=== PATIENT | male | born 1950 | race Caucasian/White ===

== ENCOUNTER 2021-10-05 14:09 | Inpatient (IN) | payer OTHER, BC ==
[~2021-10-05] VITALS: Ht 188 cm; Wt 97.5 kg
[2021-10-05 14:10] VITALS: BP 105/50
[2021-10-05 14:37] LABS: ABSOLUTE BASOPHILS 0.1 thou/uL (0.0-0.2); ABSOLUTE EOSINOPHILS 0.3 thou/uL (0.0-0.7); ABSOLUTE MONOCYTES 0.7 thou/uL (0.0-1.2); ABSOLUTE NEUTROPHILS 4.1 thou/uL (1.6-8.1); BASOPHILS 1.2 %; EOSINOPHILS 4.8 %; HEMATOCRIT 40.7 % (42.0-52.0); HEMOGLOBIN 13.7 gm/dL (14.0-18.0); LYMPHOCYTES 27.6 %; MCH 32.1 pg (26.0-34.0); MCHC 33.6 g/dL (28.0-37.0); MCV 95.6 fL (80.0-100.0); MONOCYTES 9.5 %; MPV 10.1 fl. (7.2-11.1); NUCLEATED RBCS 0 /100WBC; PLATELET COUNT* 241 thou/uL (150-400); POLYS 56.9 %; RBC 4.26 mil/uL (4.50-6.00); RDW-CV 13.5 % (10.5-14.5); WBC 7.1 thou/uL (4.0-11.0)
[2021-10-05 14:44] LABS: CALCIUM 9.2 mg/dL (8.5-10.1); CREATININE 2.2 mg/dL (0.6-1.3); POTASSIUM 4.3 mmol/L (3.5-5.1)
[2021-10-05] MEDS ORDERED: PROAIR RESPICL90 MCG INH (14:44)
[2021-10-05] MEDS ORDERED: ACETAMINOPHEN325 M1 PO (14:44)
[2021-10-05] MEDS ORDERED: BUPROPION HCL150 M1 PO (14:45)
[2021-10-05] MEDS ORDERED: ASA81BEC PO (14:45)
[2021-10-05] MEDS ORDERED: LIPITOR40 MG PO (14:45)
[2021-10-05] MEDS ORDERED: CHOLESTYRAMI239.4 GM PO (14:47)
[2021-10-05] MEDS ORDERED: PRADAXA110 MG PO (14:47)
[2021-10-05] MEDS ORDERED: FLEXERIL PO (14:47)
[2021-10-05] MEDS ORDERED: FLORINEF ACETA0.1 MG PO (14:48)
[2021-10-05] MEDS ORDERED: LOMOTIL 2.5-0.01 TAB PO (14:48)
[2021-10-05 14:49] LABS: ALBUMIN 3.8 g/dL (3.4-5.0); TOTAL BILIRUBIN 0.4 mg/dL (<0.1-1.0); TOTAL PROTEIN 7.6 g/dL (6.4-8.2)
[2021-10-05] MEDS ORDERED: GRALISE600 MG PO (14:49)
[2021-10-05] MEDS ORDERED: HYDROCODON-ACE1 EAC7 PO (14:50)
[2021-10-05] MEDS ORDERED: NEURONTIN 300M300 M2 PO (14:50)
[2021-10-05] MEDS ORDERED: IBU800 MG PO (14:51)
[2021-10-05] MEDS ORDERED: INSULIN AS100 UNIT/1 SUBQ (14:53)
[2021-10-05] MEDS ORDERED: LEVEMIR FL100 UNIT/2 SUBQ (14:54)
[2021-10-05] MEDS ORDERED: TOPROL XL25 MG PO (14:55)
[2021-10-05] MEDS ORDERED: MIDODRINE HCL10 MG PO (14:55)
[2021-10-05] MEDS ORDERED: SUPER THERAVIT1 EACH PO (14:56)
[2021-10-05] MEDS ORDERED: OXYBUTYNIN 5 MG5 M2 PO (14:56)
--- NOTE | 2021-10-05 14:56 | EKG ---
[place] [address] ELECTROCARDIOGRAM REPORT Name: CRISTÓBAL CHRISTIANSON Room: [facility]#: [id number] Admission: 10/05/21 Attend Phys: Discharge: Date of : 46 Date of Service: 10/05/21 1444 Report #: [id number] THIS REPORT FOR: //name// [facility] ED Test Date: 2021-10-05 Test Time: 14:44:20 Pat Name: CRISTÓBAL CHRISTIANSON Department: Room: Gender: Chuck Wagon Driver: [facility] : 1950 Requested By: Leatha Lama Order Number: [id number] MD: Gonzalo Boswell Measurements Intervals [place] Rate: 68 P: 86 OR: 177 QRS: 67 QRSD: 105 T: 79 QT: 455 QTc: 484 Interpretive Statements Sinus rhythm Borderline prolonged QT interval No previous ECG available for comparison Electronically Signed On 10-05-2021 14:56:33 [employer] ADMINISTRATOR by Gonzalo Boswell [email or web address] <ELECTRONICALLY SIGNED> By: Gonzalo Boswell MD, [facility] 10/05/21 1456 1444 1444 Gonzalo Boswell MD, FACC /EPI
[2021-10-05] MEDS ORDERED: MYSOLINE50 MG PO (14:57)
[2021-10-05] MEDS ORDERED: PROTONIX40 M4 PO (14:57)
[2021-10-05] MEDS ORDERED: MYSOLINE250 M1 PO (14:58)
[2021-10-05] MEDS ORDERED: VITAMIN D310 MC2 PO (14:59)
[2021-10-05] MEDS ORDERED: ARICEPT10 M1 PO (14:59)
[2021-10-05 17:56] LABS: URINE CLARITY CLEAR; URINE COLOR COLORLESS; URINE PROTEIN TRACE (Negative); URINE SPECIFIC GRAVITY 1.025 (1.005-1.030)
[2021-10-05 17:57] LABS: URINE BLOOD NEGATIVE (Negative); URINE GLUCOSE-RANDOM 2+ (Negative); URINE KETONES NEGATIVE (Negative); URINE NITRITE-REFLEX NEGATIVE (Negative); URINE REDUCING SUBSTANCE NEGATIVE (Negative)
[2021-10-05 17:58] LABS: URINE LEUKOCYTES-REFLEX NEGATIVE (Negative); URINE UROBILINOGEN 0.2 E.U./dl (0.2-1.0)
[2021-10-05 18:01] VITALS: BP 126/63
[2021-10-05 18:05] LABS: URINE BILIRUBIN NEGATIVE (Negative)
[2021-10-05 18:15] VITALS: BP 140/68
[2021-10-05 20:49] VITALS: BP 144/66
[2021-10-06] VITALS (8 sets, daily range): BP systolic 89–141; BP diastolic 47–71
[2021-10-06 08:18] LABS: HEMATOCRIT 36.2 % (42.0-52.0); HEMOGLOBIN 12.3 gm/dL (14.0-18.0); MCH 32.5 pg (26.0-34.0); MCV 95.7 fL (80.0-100.0); MPV 9.4 fl. (7.2-11.1); RBC 3.78 mil/uL (4.50-6.00); RDW-CV 13.3 % (10.5-14.5); WBC 5.6 thou/uL (4.0-11.0)
[2021-10-06 08:31] LABS: ALBUMIN 3.3 g/dL (3.4-5.0); CALCIUM 8.4 mg/dL (8.5-10.1); CREATININE 1.6 mg/dL (0.6-1.3); MAGNESIUM 1.9 mg/dL (1.8-2.4); POTASSIUM 3.8 mmol/L (3.5-5.1); TOTAL BILIRUBIN 0.3 mg/dL (<0.1-1.0); TOTAL PROTEIN 6.7 g/dL (6.4-8.2)
--- NOTE | 2021-10-06 14:32 | 2DMMODE ---
[place] [address] 2 D/M-MODE ECHOCARDIOGRAM Name: CRISTÓBAL CHRISTIANSON Room: [address] Tresa Ogden#: [id number] Admission: 10/05/21 Attend Phys: Lulu العراقي, Discharge: Date of : 46 Date of Service: 10/06/21 1432 Report #: [id number] THIS REPORT FOR: cc: Berta Mireles Kathleen M. DO Blick, David R. MD [facility] ~ APPROVED REPORT Study performed: 10/06/2021 11:37:00 EXAM: Comprehensive 2D, Doppler, and color-flow Echocardiogram Patient Location: In-Patient Room #: [facility] Status: routine BSA: 2.24 HR: 72 bpm BP: 141/65 mmHg Rhythm: NSR Other Information Study Quality: Good Indications near syncope 2D Dimensions IVSd: 12.08 (7-11mm) LVOT Diam: 22.89 (18-24mm) LVDd: 49.28 mm PWd: 11.24 (7-11mm) Ascending Ao: 35.83 (22-36mm) LVDs: 28.38 (25-40mm) Aortic Root: 33.07 mm Volumes Left Atrial Volume (Systole) LA ESV Index: 21.20 mL/m2 Aortic Valve AoV Peak Jean.: 1.23 m/s AO Peak Gr.: 6.04 mmHg LVOT Max P.21 mmHg AO Mean Gr.: 3.45 mmHg LVOT Mean P.94 mmHg LVOT Max V: 0.74 m/s AO V2 VTI: 22.89 cm LVOT Mean V: 0.44 m/s MAGDALENA (VTI): 2.84 cm2 LVOT V1 VTI: 15.82 [place] [address] 2 D/M-MODE ECHOCARDIOGRAM Name: CRISTÓBAL CHRISTIANSON Room: [address] Alin#: [id number] Admission: 10/05/21 Attend Phys: Lulu العراقي, Discharge: Date of : 46 Date of Service: 10/06/21 1432 Report #: [id number] Mitral Valve E/A Ratio: 0.89 MV Decel. Time: 263.14 ms MV E Max Jean.: 0.60 m/s MV PHT: 76.31 ms MVA (PHT): 2.88 cm2 TDI E/Lateral E': 7.50 E/Medial E': 6.67 Medial E' Jean.: 0.09 m/s Lateral E' Jean.: 0.08 m/s Pulmonary Valve PV Peak Jean.: 0.95 m/s PV Peak Gr.: 3.64 mmHg Tricuspid Valve RAP Estimate: 5.00 mmHg TR Peak Gr.: 19.07 mmHg RVSP: 24.00 mmHg PA Pressure: 24.00 mmHg Left Ventricle The left ventricle is normal size. There is normal LV segmental wall motion. Mild concentric left ventricular hypertrophy. Left ventricular systolic function is normal. The left ventricular ejection fraction is within the normal range. LVEF is 55-60%. Grade I - abnormal relaxation pattern. Right Ventricle The right ventricle is normal size. The right ventricular systolic function is normal. Atria The left atrium size is normal. The right atrium size is normal. Aortic Valve Mild aortic valve sclerosis. No aortic regurgitation is present. There is no aortic valvular stenosis. Mitral Valve The mitral valve is normal in structure. Trace mitral regurgitation. No evidence of mitral valve stenosis. Tricuspid Valve The tricuspid valve is normal in structure. Mild tricuspid regurgitation. [place] [address] 2 D/M-MODE ECHOCARDIOGRAM Name: CRISTÓBAL CHRISTIANSON Room: [address] Alin#: [id number] Admission: 10/05/21 Attend Phys: Lulu العراقي, Discharge: Date of : 46 Date of Service: 10/06/21 1432 Report #: [id number] Pulmonic Valve The pulmonary valve is normal in structure. There is no pulmonic valvular regurgitation. Great Vessels The aortic root is normal in size. IVC is normal in size and collapses >50% with inspiration. Pericardium There is no pericardial effusion. <Conclusion> Mild concentric left ventricular hypertrophy. LVEF is 55-60%. Mild aortic valve sclerosis. <ELECTRONICALLY SIGNED> By: Gonzalo Boswell MD, [facility] 10/06/21 1432 1432 1432 Gonzalo Boswell MD, FACC /INF
[2021-10-07] VITALS (9 sets, daily range): BP systolic 113–162; BP diastolic 54–85
[2021-10-08] VITALS (9 sets, daily range): BP systolic 92–172; BP diastolic 50–82
[2021-10-09] VITALS (7 sets, daily range): BP systolic 122–155; BP diastolic 59–80
[2021-10-09 03:54] LABS: HEMATOCRIT 38.4 % (42.0-52.0); HEMOGLOBIN 13.1 gm/dL (14.0-18.0); MCH 32.3 pg (26.0-34.0); MCV 94.9 fL (80.0-100.0); MPV 9.6 fl. (7.2-11.1); RBC 4.04 mil/uL (4.50-6.00); RDW-CV 13.3 % (10.5-14.5); WBC 5.6 thou/uL (4.0-11.0)
[2021-10-09 04:29] LABS: ALBUMIN 3.4 g/dL (3.4-5.0); CALCIUM 8.9 mg/dL (8.5-10.1); CREATININE 1.4 mg/dL (0.6-1.3); MAGNESIUM 1.9 mg/dL (1.8-2.4); POTASSIUM 4.2 mmol/L (3.5-5.1); TOTAL BILIRUBIN 0.2 mg/dL (<0.1-1.0); TOTAL PROTEIN 6.9 g/dL (6.4-8.2)
[2021-10-10] VITALS (10 sets, daily range): BP systolic 75–149; BP diastolic 48–77
[2021-10-10 05:16] LABS: HEMOGLOBIN 11.9 gm/dL (14.0-18.0); MCH 32.3 pg (26.0-34.0); MCHC 34.2 g/dL (28.0-37.0); MCV 94.4 fL (80.0-100.0); MPV 9.6 fl. (7.2-11.1); RBC 3.7 mil/uL (4.50-6.00); RDW-CV 13.2 % (10.5-14.5)
[2021-10-10 05:40] LABS: CALCIUM 8.6 mg/dL (8.5-10.1); CREATININE 1.6 mg/dL (0.6-1.3); MAGNESIUM 1.9 mg/dL (1.8-2.4); POTASSIUM 4.3 mmol/L (3.5-5.1)
[2021-10-11] VITALS (8 sets, daily range): BP systolic 113–160; BP diastolic 62–78
== END 2021-10-11 18:30 | disposition home health service (06) | DRG 312 ==
LOC: M.ERS 14:09 → M.TBA-ER 15:17 → M.2W 15:17
PROVIDERS: Physician Assistant; ADMIT Internal Medicine; ATTEND Internal Medicine
DX: I95.1 Orthostatic hypotension (principal); E11.65 Type 2 diabetes mellitus with hyperglycemia; Z79.4 Long term (current) use of insulin; Z20.822 Contact with and (suspected) exposure to COVID-19; I25.10 Atherosclerotic heart disease of native coronary artery without angina pectoris; Z86.73 Personal history of transient ischemic attack (TIA), and cerebral infarction without residual deficits; I25.2 Old myocardial infarction; E78.5 Hyperlipidemia, unspecified; F03.90 Unspecified dementia, unspecified severity, without behavioral disturbance, psychotic disturbance, mood disturbance, and anxiety; Z95.1 Presence of aortocoronary bypass graft